=== PATIENT | female | born 1985 | race Hispanic/Latino ===

== ENCOUNTER 2020-09-13 07:42 | Outpatient (CLI) | payer OTHER ==
--- NOTE | 2020-09-13 09:58 | ULT ---
Ultrasound obstetrical Limited: 09/13/2020 HISTORY: 34-year-old female with placenta previa. Follow-up. FINDINGS: On the transabdominal images, the inferior portion of the posterior placenta completely covers the in ternal cervical os for a distance of at least 3.2 cm anterior to the osseous. On the transvaginal images, the scrap hooker measures a distance between what she has labeled the inte rnal os, and what she has labeled as the tip of the placenta, with apparently no placenta previa. However, the radiologist was not present during the scan, and is not confident of this assessment. The transabdominal images of the placenta previa appear identical to the ultrasound of 07/28/2020. The cervix is closed and measures approximate 6.7 cm in length. IMPRESSION: On the transabdominal images, there appears to be a persistent complete placenta previa.
== END 2020-09-13 07:43 | disposition home or self-care (01) ==
LOC: BICULT 07:42
PROVIDERS: ATTEND Family Medicine
DX: O44.03 Complete placenta previa NOS or without hemorrhage, third trimester (principal)
CPT/HCPCS: 76815

== ENCOUNTER 2020-10-01 07:36 | Outpatient (CLI) | payer OTHER ==
[2020-10-01 17:55] LABS: SARS-CoV-2 MS2 Positive; SARS-CoV-2 N Gene Negative; SARS-CoV-2 S Gene Negative; SARS-CoV-2 by NAA Not Detected (NotDetected); SARS-CoV-2 orf1ab Negative
== END 2020-10-01 07:37 | disposition home or self-care (01) ==
LOC: LABBT 07:36
PROVIDERS: ATTEND Family Medicine
DX: Z20.828 Contact with and (suspected) exposure to other viral communicable diseases (principal)
CPT/HCPCS: 87635; U0003

== ENCOUNTER 2020-10-05 10:33 | Inpatient (IN) | payer OTHER ==
[2020-10-05] MEDS ORDERED: Promethazine HCl 25 MG/ML VIAL IM PRN ×2 (11:02→15:16)
[2020-10-05] MEDS ORDERED: Azithromycin 500 MG in Sodium Chloride 0.9% 250 ML 250 ML IVPB SCH (11:02)
[2020-10-05] MEDS ORDERED: hydrALAZINE 20 MG/ML VIAL SLOW IVP PRN ×2 (11:02→16:08)
[2020-10-05] MEDS ORDERED: CEFAZOLIN 2 GM in Premix Bag 1 BAG IVPB SCH (11:02)
[2020-10-05] MEDS ORDERED: Ondansetron PF 4 MG/2 ML Vial IVP PRN ×3 (11:02→16:08)
[2020-10-05] MEDS: Lactated Ringer's 1,000 ML IV SCH ×2 (11:35→17:04)
[2020-10-05 11:40] VITALS: BMI 40.0
[2020-10-05 11:47] LABS: Hemoglobin 12.7 g/dL (12.0-16.0); Mean Corpuscular HGB CONC 32.7 g/dL (32.0-36.0); Mean Corpuscular Hemoglobin 27.3 pg (27.0-31.0); Mean Corpuscular Volume 83.5 fL (78.0-98.0); Mean Platelet Volume 9.2 fL (7.4-10.4); Platelet Count 298 thou/uL (130-400); RBC Distribution Width 16.9 % (11.5-14.5); Red Blood Cell (RBC) Count 4.65 mill/uL (4.20-5.40); White Blood Cell (WBC) Count 7.9 thou/uL (4.8-10.8)
[2020-10-05] MEDS: Bicitra 30 ML UDCUP PO SCH ×2 (11:56→16:27)
[2020-10-05] MEDS ORDERED: Morphine PF 10 MG/10 ML VIAL ONE (12:13)
[2020-10-05] MEDS ORDERED: PHENYLEPHRINE-NS 100 MCG/ML 10 ML SYRINGE ONE (12:19)
[2020-10-05 12:26] LABS: Syphilis Antibody Nonreactive (Nonreactive); Syphilis Antibody Index 0.03 S/CO (<1.00 Non-Reactive)
[2020-10-05 12:27] LABS: HBSAg Index 0.22 S/CO (0-0.99); Hep B Surf Ag Non-Reactive S/CO (NonReactive)
[2020-10-05] MEDS ORDERED: Oxytocin 10 UNITS/ML VIAL ONE ×2 (12:34→13:23)
[2020-10-05] MEDS ORDERED: Ondansetron PF 4 MG/2 ML Vial ONE (12:44)
[2020-10-05 13:19] LABS: Actual Bicarbonate (HCO3a) 25.6 mEq/L (22-28); Base Excess (BEa) -4.1 mEq/L (-2.0 to +3.0)
[2020-10-05 13:22] LABS: Actual Bicarbonate (HCO3v) 22 mEq/L (22-28); Base Excess -4.6 mEq/L (-2.0 to +3.0); pH (Cord, venous) 7.31 (7.32-7.43)
[2020-10-05] MEDS ORDERED: Promethazine HCl 25 MG/ML VIAL ONE (13:35)
--- NOTE | 2020-10-05 13:36 | PDOC.OPDEL ---
OB Operative/Delivery Note Delivery Dr/Surgeon: Dr. Talbot, Resident surgeon, Dr. Pires Pre-Delivery Diagnosis: scheduled section, other (placenta previa) Procedure/Post Delivery Dx: primary low transverse CS Weeks gestation: 36 Anesthesia: spinal - Additional Findings/Plan Placenta delivered: manual removal findings: low transverse hysterotomy without extension Estimated blood loss: 590 Compilations/Other Findings: Date of Procedure: 10/05/20 Attending Surgeon: Dr. Talbot Resident surgeon: Dr. Pires Procedure: Primary low transverse caesarean section Preoperative Diagnosis: 1) Pre-term intrauterine @ 36.0 weeks 2) Scheduled primary LTCS 3) Placenta Previa Postoperative Diagnosis: 1) Pre-Term delivered 2) same as above Anesthesia: spinal Indications: 35 year old @ 36 wks presents for scheduled primary LTCS indicated for placenta previa. Procedure in Detail: After risks, benefits, and alternatives were explained to the patient, she gave informed consent. Pre-operative antibiotics included ancef 2 g and azithro 500 mg. The patient was taken to the operating room and spinal anesthesia was placed. She was placed in the supine position with a left tilt and prepped and draped in usual sterile fashion. A Pfannenstiel incision was made with a scalpel and carried down to the level of the fascia which was sharply nicked. The fascial cut was extended bilaterally with curved mayos. The inferior and superior edges of the cut fascial edges were elevated with Genevieve clamps and the underlying rectus muscles bluntly and sharply dissected free. The recti were divided using blunt dissection. The peritoneum was entered bluntly and retracted manually. The uterus was palpated, and large in size with a few anterior fibroids. Rodolfo-O was placed. A low transverse score was made with the scalpel and the uterus was entered in the midline with the scalpel. Clear fluid was seen on amniotomy. The hysterotomy was extended manually. The was noted to be cephalic and easily delivered with fundal pressure. Infant was had good tone, but not crying while mouth and nares were bulb suctioned. Cord clamped after several seconds and cut, and grossly normal was handed to waiting nurse at warming table. Cord blood, umbilical artery and vein gasses were obtained. Placenta was manually extracted, found to be intact with 3 vessel cord and discarded. There was a normal amount of bleeding and the placenta previa did not cause any problems. The uterus was not externalized due to the size. There was palpable fibroids 2-3 cm in size on the anterior fundal location. Ring forceps were applied to the hysterotomy edges and inferior egde for hemostasis and the endometrium was curetted with a dry lap. The hysterotomy was closed with a running locking 0-Monocryl in the usual fashion. A running imbricating layer using 3-0 chrommic was performed. After this hemostasis was not achieved fully. flow seal was applied to hysterotomy site and firm pressure with a damp lap held for 2 minutes. one further bleeder was attended to with bovie. After this hemostasis was achieved. The Rodolfo-O was externalized and hysterotomy was again noted to be hemostatic. The peritoneum was closed with a 3-0 vicryl in a running fashion. The rectus was evaluated for bleeders, and found to be free of bleeders. The fascia was closed with a running non-locking 0-PDS suture. The subcutaneous tissue was irrigated and the bleeders were attended to with bovie. The subcutaneous spaced was closed with 3 interrupted 3-0 vicryl. The skin was approximated with laney and a pressure bandage was placed. All counts were correct X3. The patient tolerated the procedure well and was taken to the recovery room in stable condition. QBL: 590 ml Time of delivery: 1237 Complications: None Specimens: cord blood, umbilical vein and artery blood gas. Findings: Grossly normal infant. Grossly normal placenta with 3 vessel cord. Uterine Fibroids. Drains: Garcia to gravity draining clear urine Post delivery plan: recovery in LICU
[2020-10-05] MEDS ORDERED: Morphine 4 MG/ML VIAL ONE (14:25)
[2020-10-05] MEDS ORDERED: Ketorolac Tromethamine 30 MG/ML VIAL ONE (14:25)
[2020-10-05] MEDS ORDERED: HYDROmorphone 2 MG/ML VIAL SLOW IVP PRN (15:16)
[2020-10-05] MEDS ORDERED: Promethazine HCl 25 MG SUPP PR PRN (15:16)
[2020-10-05] MEDS ORDERED: Meperidine HCl/PF 25 MG/ML VIAL SLOW IVP PRN (15:16)
[2020-10-05] MEDS ORDERED: diphenhydrAMINE 50 MG/ML VIAL IVP PRN (15:16)
[2020-10-05] MEDS ORDERED: Naloxone HCl 0.4 mg/ml Vial IV PRN (15:16)
[2020-10-05] MEDS ORDERED: Ondansetron HCl/PF 4 MG/2 ML Vial IVP PRN (15:16)
[2020-10-05] MEDS ORDERED: L&D-Morphine 4 MG/ML VIAL SLOW IVP PRN (15:16)
[2020-10-05] MEDS ORDERED: Ketorolac Tromethamine 30 MG/ML VIAL IVP PRN (15:16)
[2020-10-05] MEDS ORDERED: Naloxone HCl 0.4 mg/ml Vial IVP PRN ×2 (15:16)
[2020-10-05] MEDS ORDERED: Communication Order-Pharmacy FS SCH (15:30)
[2020-10-05] MEDS ORDERED: Ketorolac Tromethamine 30 MG/ML VIAL IVP SCH (15:30)
[2020-10-05] MEDS ORDERED: Morphine 4 MG/ML VIAL SLOW IVP PRN (15:31)
[2020-10-05] MEDS ORDERED: Bisacodyl 10 MG SUPP PR PRN (16:08)
[2020-10-05] MEDS ORDERED: NS / Oxytocin 40 units/1000ml 1,000 ML IV SCH (16:08)
[2020-10-05] MEDS ORDERED: Lanolin Ointment 7 GM TUBE TOP PRN (16:08)
[2020-10-05] MEDS ORDERED: diphenhydrAMINE 25 MG CAP PO PRN (16:08)
[2020-10-05] MEDS: Ketorolac Tromethamine 30 MG/ML VIAL IVP SCH (20:57)
[2020-10-05] MEDS: Docusate Calcium (SURFAK) 240 MG CAP PO SCH (21:00)
[2020-10-06] MEDS: Ketorolac Tromethamine 30 MG/ML VIAL IVP SCH ×2 (03:02→08:32)
[2020-10-06] MEDS ORDERED: HYDROcodone/Acetaminophen 5/325 mg Tablet PO PRN (03:31)
[2020-10-06] MEDS ORDERED: Meperidine HCl/PF 25 MG/ML VIAL IM PRN (03:31)
[2020-10-06] MEDS: Ferrous Sulfate 325 MG TAB PO SCH ×3 (05:53→21:36)
[2020-10-06 08:05] LABS: Hemoglobin 9.8 g/dL (12.0-16.0); Mean Corpuscular HGB CONC 33.5 g/dL (32.0-36.0); Mean Corpuscular Hemoglobin 28.6 pg (27.0-31.0); Mean Corpuscular Volume 85.4 fL (78.0-98.0); Mean Platelet Volume 9.4 fL (7.4-10.4); Platelet Count 207 thou/uL (130-400); RBC Distribution Width 16.9 % (11.5-14.5); Red Blood Cell (RBC) Count 3.44 mill/uL (4.20-5.40); White Blood Cell (WBC) Count 6.2 thou/uL (4.8-10.8)
[2020-10-06] MEDS: Docusate Calcium (SURFAK) 240 MG CAP PO SCH ×2 (08:32→21:35)
[2020-10-06] MEDS: Prenatal Vitamin 1 TAB PO SCH (08:32)
[2020-10-06] MEDS: Simethicone Chewable 80 MG TAB PO PRN ×2 (08:32→21:36)
[2020-10-06] MEDS ORDERED: Adacel (T-DAP) 0.5 ML SYRINGE IM ONE (09:00)
[2020-10-06] MEDS: Ibuprofen 800 MG TAB PO SCH ×2 (13:14→21:35)
[2020-10-06] MEDS: HYDROcodone/Acetaminophen 5/325 mg Tablet PO PRN (15:59)
[2020-10-07] MEDS: Ibuprofen 800 MG TAB PO SCH (06:17)
[2020-10-07 08:35] VITALS: BP 124/65; TEMP 99.2
[2020-10-07] MEDS: Simethicone Chewable 80 MG TAB PO PRN (08:42)
[2020-10-07] MEDS: HYDROcodone/Acetaminophen 5/325 mg Tablet PO PRN (08:42)
[2020-10-07] MEDS: Prenatal Vitamin 1 TAB PO SCH (08:42)
[2020-10-07] MEDS: Docusate Calcium (SURFAK) 240 MG CAP PO SCH (08:42)
[2020-10-07] MEDS: Ferrous Sulfate 325 MG TAB PO SCH (08:45)
--- NOTE | 2020-10-09 03:11 | PQF ---
CLINICAL DOCUMENTATION CLARIFICATION FORM: Dear : Joe Talbot Date / Time: 10/09/2020 Please exercise your independent, professional judgment in responding to the clarification form. Clinical indicators are provided on the bottom of this form for your review Please check appropriate box(es): [ ] Associated Diagnosis: Acute blood loss anemia [ ] Abnormal laboratory findings not clinically significant [ ] Other diagnosis, please specify [ ] Unable to determine In addition, please specify: Present on Admission (POA): [ ] Yes [ ] No [ ] Unable to determine Physician Signature: Date/Time: For continuity of documentation, please document condition throughout progress notes and discharge summary. Thank You. To be completed by CDI/Coding staff for physician review: Present Clinical Indicators - Signs / Symptoms / Labs Results and Location in Medical Record [X] RBC 4.65, Hgb 12.7, Hct 38.18 Laboratory 10/05 [X] RBC 3.44, Hgb 9.8, Hct 29.4 Laboratory 10/06 [X] ABG base excess -4.1, VBG base excess -4.6, pH 7.195. PCO2 67.8, Laboratory 10/05 [X] BP 140/75, Pulse 97, Resp 18, Temp 98.2 Vital signs 10/05 [X] Quantitative blood loss 590 ml Operative report 10/05 Dr Pires Present Risk Factors Results and Location in Medical Record [X] IUP Operative report 10/05 Dr Pires [X] Placenta previa Operative report 10/05 Dr Pires [X] s/p Low-transerse section Operative report 10/04 Dr Alcala Present Treatments Results and Location in Medical Record [X] Series of hgb and hct labs Laboratory 10/05 [X] Ferrous Sulfate 325 mg oral MAR 10/05 [X] IV Lactated Ringers 1L JAN 20 CDS/Vp Platforms Signature: Francisca Levinelino Phone #: [phone] Date/Time: 10/09/2020 This is a permanent part of the Medical Record [facility]
== END 2020-10-07 12:55 | disposition home or self-care (01) | DRG 788 ==
LOC: L&D 10:33 → 3SW 16:11
PROVIDERS: ADMIT Family Medicine; ATTEND Family Medicine
PROC: 10D00Z1 Extraction of Products of Conception, Low, Open Approach (ICD-10-PCS; principal; 2020-10-05)
DX: O44.03 Complete placenta previa NOS or without hemorrhage, third trimester (principal); Z3A.36 36 weeks gestation of pregnancy; Z37.0 Single live birth; O34.13 Maternal care for benign tumor of corpus uteri, third trimester; D25.9 Leiomyoma of uterus, unspecified; Z20.828 Contact with and (suspected) exposure to other viral communicable diseases
CPT/HCPCS: 36415; 51702; 82805; 85027; 86780; 86850; 86900; 86901; 87340; J0456; J0690; J1885; J2270; J2405; J2550; J7050